=== PATIENT | male | born 1995 | race Asian ===

== ENCOUNTER 2018-10-23 06:08 | Emergency (ER) | payer MEDICAID ==
[~2018-10-23] VITALS: Ht 180.3 cm; Wt 76.2 kg
[2018-10-23 06:15] VITALS: BP_SYST 121
--- NOTE | 2018-10-23 06:15 | NUR ---
Patient to ER bed 5 to gown for evaluation. Side rails up. Report given to TRINO CURRIE.
--- NOTE | 2018-10-23 06:18 | NUR ---
Patient AOx4, ambulatory, presents to ER with complaint of left testicular pain 09/22 since saturday. Patient states he masturbated and ejaculated blood. No other symptoms or complaints.
--- NOTE | 2018-10-23 06:20 | NUR ---
ER Sing at bedside for medical evaluation.
--- NOTE | 2018-10-23 07:15 | NUR ---
Pt received from night RN using SBAR. Pt sitting in bed, applied ice pack to injured area stating that pain level is now 3/10.
[2018-10-23 07:30] LABS: BILIRUBIN,URINE NEGATIVE (NEGATIVE); BLOOD, URINE 2+ (NEGATIVE); CLARITY/URINE CLEAR (CLEAR); COLOR,URINE YELLOW (YELLOW); GLUCOSE,URINE NEGATIVE (NEGATIVE); KETONES,URINE NEGATIVE (NEGATIVE); LEUKOCYTE ESTERASE ,URINE 1+ (NEGATIVE); NITRITE, URINE NEGATIVE (NEGATIVE); PROTEIN URINE 1+ (NEGATIVE); UROBILINOGEN,URINE 0.2 (0.2-1.0)
[2018-10-23 07:32] LABS: BACTERIA,URINE MODERATE /HPF (None Seen); WBC,URINE >100 /HPF (0-3)
--- NOTE | 2018-10-23 07:59 | NUR ---
ER Dr. Dc at bedside examining patient.
[2018-10-23] MEDS ORDERED: AZITHROMYCIN 250 MG TABLET PO ONE (08:15)
[2018-10-23] MEDS ORDERED: cefTRIAXone 250 MG in LIDOCAINE 1%, 20 ML MDV 0.9 ML IM ONE (08:15)
[2018-10-23 08:47] VITALS: BP_SYST 118
--- NOTE | 2018-10-23 08:47 | NUR ---
Patient given written and verbal discharge instructions and verbalizes understanding. ER MD discussed with patient the results and treatment provided. Patient in stable condition. ID arm band removed. Rx of Motrin 800mg, Doxycycline 100mg given. Patient educated on pain management and to follow up with PMD. Pain Scale 1/10. Opportunity for questions provided and answered. Medication side effect fact sheet provided.
[2018-10-25 02:22] LABS: CHLAMYDIA TRACHOMATIS NAA Negative (Negative); NEISSERIA GONORRHOEAE NAA Negative (Negative)
== END 2018-10-23 08:47 | disposition home or self-care (01) ==
LOC: SED 06:08
DX: N45.1 Epididymitis (principal)
CPT/HCPCS: 76870; 81000; 87086; 87491; 87591; 96372; 99284; J0696; J2001; Q0144